=== PATIENT | female | born 1950 | race Caucasian/White ===

== ENCOUNTER 2019-03-21 14:01 | Inpatient (IN) ==
[2019-03-21] MEDS ORDERED: TORADOL IM ONE (16:29)
[2019-03-21] MEDS ORDERED: LIDODERM TOP ONE (16:29)
--- NOTE | 2019-03-21 18:42 | Diag Imaging Result Doc PS360 ---
EXAM: CT THORAX W/O CONTRAST 03/21/2019 HISTORY: multiple rib fractures s/p fal TECHNIQUE: This exam was performed using automated exposure control, adjustment of mA or kV according to patient size, and/or use of iterative reconstruction technique. COMMENT: There is no evidence of pneumothorax or pleural fluid collection. There is a partially groundglass opacity present laterally in the right upper lobe on image 42 which has a slightly greater solid component than on the previous study of 04/30/2015. This was also present on the previous study of 08/24/2014. There is also a multilobulated and partially spiculated nodule in the left upper lobe measuring 16 mm in greatest AP dimension. This was slightly less than 15 mm at the time the previous examination but was also present at the time the previous study of 2013. There are platelike opacities present in the right middle lobe similar in appearance to the previous examination. There is atelectasis versus pneumonia in the posterior costophrenic sulci bilaterally which was not the case previously. There is a hiatal hernia. There are multiple cysts in the liver. The spleen contains a granuloma but is otherwise unremarkable in appearance considering the lack of contrast. There are granulomatous calcifications in the infrahilar region of the left lower lobe. There is no evidence of significant adenopathy. There is a calcified nodule in the left lower lobe which was also present at the time the previous study. There are fractures of the right posterior lateral fifth and sixth ribs. IMPRESSION: Right fifth and sixth rib fractures. Pulmonary nodules as described. Bibasilar atelectasis. Electronically signed by Vijay Carmichael 03/21/2019 6:39 PM
--- NOTE | 2019-03-21 19:21 | PROVIDER DOCUMENTATION ---
This chart was entered by Nghia Quinteros Scribe, acting as scribe for Matilde Pollard MD. HPI-Musculoskeletal Pain/Inj - GENERAL Chief Complaint: Fall Stated Complaint: rib pain Time Seen by Provider: 03/21/19 16:25 Source: patient - HX OF PRESENT ILLNESS-MUSKULOSKELTAL Nature of Presenting Problem: 69 yof presents to ed with c/o of right rib pain secondary to tripping over her feet and falling on right side. Reports this happened this morning. States she went to Urgent care in [place] where xray was done and showed displaced ribs per patient. Pt reports that she was told to come to ed for more more imaging. Reports pain on inspiration and certain positions. Denies hitting her head or any other injuries. Hx of left pnuemothorax and lung tumors. Allergic to CT dye and omnicef. Pt reports she is on coumadin. Quality of Pain: reports: aching Severity in ED: moderate Onset/Duration: this morning Timing: still present Modifying Factors: worse with: movement Any recent injury?: Yes Similar Symptoms Previously?: Yes Recently seen or treated by another doctor?: Yes (this morning Urgent care in [place]) Review of Systems - Adult - REVIEW OF SYSTEMS - ADULT Constitutional: denies: chills, fever, fatique Eyes: reports: no symptoms reported Ears, Nose, Mouth & Throat: denies: ear pain, sinus problem, throat pain Cardiovascular: reports: no symptoms reported Respiratory: denies: cough, shortness of breath Gastrointestinal: denies: abdominal pain, nausea, vomiting Genitourinary: reports: no symptoms reported Musculoskeletal: reports: see HPI, bone pain. denies: back pain, joint pain, joint swelling, muscle aches, muscle weakness, neck pain Integumentary: reports: no symptoms reported Neurological: reports: no symptoms reported Psychiatric: reports: no symptoms reported Endocrine: reports: no symptoms reported Hematologic/Lymphatic: reports: no symptoms reported Allergic/Immunologic: reports: no symptoms reported All Other Systems: Reviewed and Negative Past History - Adult - PAST MEDICAL HISTORY-ADULT Review of Records: reports: Nursing Assessment Review, Medications Reviewed Major Childhood Illnesses: reports: denies history Cardiovascular: reports: A-Fib Respiratory: reports: other (hx of lung tumors and left pneumothorax) Gastrointestinal: reports: denies history Obstetrical/Gynecological: reports: denies history Genitourinary: reports: denies history Musculoskeletal: reports: denies history Neurological: reports: denies history Endocrine/Immune: reports: denies history Other Conditions: reports: denies history - IMMUNIZATION STATUS Childhood Immunizations: See Nurse Assessment Flu Vaccine: See Nurse Assessment - FAMILY HISTORY Family History: reviewed, not pertinent Physical Exam-Injury Related - Physical Exam-Injury Related Initial Vital Signs Reviewed: Yes General Appearance: appears well, alert, mild distress Immobilization?: negative: backboard, C-collar Eyes: PERRL/EOMI, pink conjunctivae Head, Ears, Nose, Mouth & Throat: moist mucous membranes Neck: non-tender, full range of motion, supple, normal inspection Respiratory: lungs clear, normal breath sounds, no pleuratic chest pain, no respiratory distress, no accessory muscle use, pain on inspiration. 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 as tested, grossly normal, no motor/sensory deficits Psych/Mental Status: normal mood/affect, normal thought content, normal thought process, oriented x 3 - Glascow Coma Score Best Eye Response (Largo): (4) open spontaneously Best Verbal Response (Largo): (5) oriented Best Motor Response (Largo): (6) obeys commands Largo Total: 15 Progress - PLAN OF CARE/RESULTS Progress/Plan/Lab Results: Vital Signs - 8 hr 03/21/19 14:11 03/21/19 18:08 Temperature 98 F 98.2 F Pulse Rate 72 60 Respiratory Rate 18 18 Blood Pressure 171/69 150/61 O2 Sat by Pulse Oximetry 96 95 Orders Category Date Time Status CT THORAX W/O CONTRAST [CT] Stat Exams 03/21/19 18:05 Completed PROTIME WITH INR [COAG] Stat Lab 03/21/19 19:08 Uncollected Ketorolac [Toradol] Med 03/21/19 16:29 Discontinued 30 mg IM NOW ONE Lidocaine 5% Patch [Lidoderm] Med 03/21/19 16:29 Discontinued 1 each TOP NOW ONE - REASSESSMENT Reassessment #1 Time Reassessed: 18:58 (refused medication and would like to go home. ) Status: unchanged - CONSULTS/PCP/HOSPITALIST Notification #1 *Consult/PCP/Hospitalist*: dr. Gaspar Time Discussed: 19:01 (transfer to [facility]) Consult Disposition: Admit Departure - Departure Date of Disposition Decision: 03/21/19 Time of Disposition Decision: 18:59 DIAGNOSIS: Multiple rib fractures, Pulmonary nodule Disposition: HOME 01 Certified Medical Emergency: Emergent Condition: Stable Additional Freetext Instructions: follow upwith doctor or orthopedic doctor within 1-2 days. ED Follow Up Instructions: You have been treated by a care provider in the Emergency Department. These instructions are being provided to you so you can have an understanding of how to care for yourself upon discharge. Upon discharge from the Emergency Department, you are responsible for making arrangements for follow-up care by a physician of your choice. Take all prescribed medications as directed. Return to the Emergency Department immediately for any new or worsening symptoms. You may call the Physician Referral phone number at [phone] to obtain a list of Physicians who are taking new patients. Prescriptions: Cyclobenzaprine [Flexeril] 10 mg PO TID PRN #12 tab PRN Reason: muscle spasm Lidocaine [Ztlido] 1 ea TOPICAL DAILY #5 adh..patch Referrals and Follow-Ups: Garry Hennessy [Primary Care Provider] - - Critical Care Note This patient required my direct & personal management of CC.: No Attestation - Physician/ EVELYNE Attestation Patient care was provided by Advanced Practice Provider:: No The physician spent face to face time with patient:: Yes Advanced Practice Provider documentation review:: Supervising physician onsite and consulted in the evaluation and care of this patient. The physician did have a face to face encounter with the patient. This chart was documented by the indicated scribe, (Nghia Quinteros Scribe) and accurately reflects the services I performed and decisions made by me, Matilde Pollard MD, as attested by the provider's signature.
[2019-03-21 20:15] LABS: INR 2.57; PROTIME 28.8 Seconds (11.0-16.0)
[2019-03-21] MEDS ORDERED: BETAPACE PO ONE (22:46)
[2019-03-22 02:32] LABS: BASO# 0.02 X1000 (0.0-0.2); BASO% 0.2 % (0.0-0.8); EOS# 0.11 X1000 (0.0-0.7); EOS% 1.2 % (0.0-10.0); HEMATOCRIT 43.9 % (37.0-47.0); HEMOGLOBIN 15.1 g/dL (12.0-16.0); LYMPH# 1.77 X1000 (1.2-3.4); LYMPH% 18.9 % (20.5-51.1); MCH 31.5 PG (27-31); MCHC 34.4 g/dL (33-37); MCV 91.5 FL (81-99); MONO# 1.11 X1000 (0.11-0.59); MONO% 11.9 % (1.7-9.3); MPV 11.1 FL (7.4-10.4); NEUT# 6.34 X1000 (1.4-6.5); NEUT% 67.8 % (42.2-75.2); PLT 161 X1000 (130-400); RDW 12.9 % (11.5-14.5); WBC 9.35 X1000 (4.8-10.8)
[2019-03-22 02:41] LABS: INR 2.57; PROTIME 29.5 Seconds (11.0-16.0)
[2019-03-22] MEDS ORDERED: MORPHINE IV PRN (02:48)
[2019-03-22] MEDS ORDERED: ZOFRAN IV PRN (02:48)
[2019-03-22 03:00] LABS: AGAP 6; ALB/GLOB RATIO 1.3; ALKALINE PHOSPHATASE 51 U/L (32-104); BUN 18 mg/dL (8-22); CALCIUM 9.5 mg/dL (8.8-10.2); CHLORIDE 105 mmol/L (98-107); COSMO 283; CREATININE 0.9 mg/dL (0.5-0.9); ESTIMATED GFR > 60; GLUCOSE 90 mg/dL (70-104); GOT 20 U/L (10-30); GPT 17 U/L (10-36); POTASSIUM 3.9 mmol/L (3.5-5.1); SODIUM 141 mmol/L (136-145); TCO2 30 mmol/L (25-35); TOTAL BILIRUBIN 0.51 mg/dL (0.20-1.00); TOTAL PROTEIN 7.2 g/dL (6.3-8.3)
[2019-03-22] MEDS ORDERED: MORPHINE IV ONE (03:27)
[2019-03-22] MEDS ORDERED: OFIRMEV 1000 MG/ISOTONIC SOLN 1,000 MG/100 ML BOTTLE IV ONE (04:01)
[2019-03-22] MEDS ORDERED: ATIVAN PO PRN (05:19)
--- NOTE | 2019-03-22 07:40 | EKG Report ---
Test Performed on : 03/22/2019 02:26:01 AM Test Reason : FAll with right rib fx Blood Pressure : / mmHG Vent. Rate : 062 BPM Atrial Rate : 062 BPM P-R Int : 166 ms QRS Dur : 092 ms QT Int : 454 ms P-R-T Axes : 055 048 045 degrees QTc Int : 460 ms Normal sinus rhythm. Normal ECG When compared with ECG of 01-MAY-2014 14:10, premature atrial complexes. are no longer present Confirmed by Freda ALEXIS, Foster ([id number]) on 03/22/2019 9:06:16 AM
--- NOTE | 2019-03-22 08:11 | HISTORY AND PHYSICAL ---
DATE OF CONSULTATION: 03/22/2019 REQUESTING PHYSICIAN: Physician requesting consult is Dr. Gaspar CHIEF COMPLAINT: Fall with right rib pain. PRIMARY CARE PROVIDER: Dr. Garry Hennessy. AWS CONSULTANT: Dr. Dorantes. PORT DRIER: Dr. Sanchez Quinteros. HISTORY OF PRESENT ILLNESS: Ms. Wei is a 69-year-old, female with a past medical history most notable for atrial fibrillation, on anticoagulation with Coumadin, hyperlipidemia, hypertension, glaucoma. The patient states that yesterday morning, on 03/21/2018, that she was coming out of her house. She went down the steps and stepped onto the concrete, and states that she somehow got her foot caught and tripped. This caused her to fall onto her right side. The patient denied hitting her head. She denied any loss of consciousness. The patient states that she did lay on the ground for a few minutes, though was able to get herself up. She was then and is still, at this time, complaining of right flank, right back pain. 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 She did actually get in her car and drive there yesterday morning and though did ultimately end up leaving there and going to an urgent care nearby. At the urgent care, the physician there told her that she did have rib fractures on the right side and did instruct her to come to the ER for further imaging. The patient did present to the ER at [place]. They did perform a CT of the thorax without contrast which did show right 5th and 6th rib fractures. There were pulmonary nodules noted as well. There was bibasilar atelectasis. The patient is denying any other symptoms. She is denying any chest pain, shortness of breath, or abdominal pain. She denied any pain in her extremities. The only pain that she is reporting is in her right side/flank and right back area. They did perform an INR in the ER which had a result of 2.5. They did consult Dr. Gaspar with the surgical team who did recommend the patient be admitted at [facility]. The patient was transferred to [facility] for further treatment and evaluation. REVIEW OF SYSTEMS: A 14 point review of systems was conducted with the patient. All were negative except for the pertinent positives as mentioned above in the HPI. PAST MEDICAL HISTORY: 1. History of paroxysmal atrial fibrillation, on chronic anticoagulation with Coumadin. 2. Hyperlipidemia. 3. Hypertension. 4. Glaucoma. 5. Kidney stones. 6. Diverticulitis. 7. History of this spastic torticollis. 8. History of left lung nodule, status post biopsy. PAST SURGICAL HISTORY: The patient denies any previous surgeries except for her lung biopsy and subsequent chest tube placement due to complications of a pneumothorax during her biopsy. SOCIAL HISTORY: The patient is a former smoker. She quit smoking in 1991. She denies any alcohol or illicit drug use. 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 FAMILY HISTORY: Positive for her mother having COPD, stroke, and myocardial infarction. Her father did have a myocardial infarction in his 40s, though did ultimately pass away secondary to colon cancer. ALLERGIES: The patient reports anaphylactic allergies to IV and oral contrast dye. She also did report that when she takes some Omnicef, she did have a rash, itching, and swelling of her lips and face. HOME MEDICATIONS: 1. Calcium citrate with vitamin D 600 mg p.o. b.i.d. 2. Diclofenac 75 mg tablet p.o. t.i.d. p.r.n. 3. Colace 100 mg p.o. at bedtime. 4. Latanoprost ophthalmic solution 1 drop in both eyes at bedtime. 5. Ativan 0.5 mg p.o. at bedtime. 6. Fish oil 100 mg softgel 1 p.o. b.i.d. 7. Simvastatin 20 mg p.o. at bedtime. 8. Betapace 120 mg p.o. b.i.d. 9. Timolol malleate ophthalmic solution 1 drop in both eyes q.a.m. 10. Valsartan 80 mg p.o. at bedtime. 11. Coumadin 5 mg p.o. at bedtime. 12. Ambien 5 mg p.o. at bedtime. DIAGNOSTIC DATA: Laboratory Results: White blood cell count is 9350, hemoglobin 15.1, hematocrit 43.9, platelet count is 161,000. PT 29.5, INR is 2.57. Sodium 141, potassium 3.9, chloride 105, serum bicarb is 30, BUN 18, creatinine 0.9, glucose 90, calcium 9.5. Liver function tests within normal limits. EKG showed sinus rhythm at a rate of 62 with a QTc of 460. CT of the chest without contrast showed right 5th and 6th rib fractures. There are pulmonary nodules and bibasilar atelectasis. Please see full CT of thorax for detailed findings of the size of the nodules as compared to previous CT chest study results. PHYSICAL EXAMINATION: Vital Signs: Temperature 97.9 degrees, heart rate 62, respirations 18, blood pressure is 138/49, oxygen saturation is 94-97% on room air. General: Ms. Wei is a very pleasant, 69-year-old, female. She was resting in the inpatient bed. She was in no acute distress. She was awake, alert, and able to answer questions appropriately. HEENT: Head is atraumatic, normocephalic. Pupils are equal, round, reactive to light, were 3 mm bilaterally and brisk. Oral mucosa is moist. Oropharynx is clear. Neck: Supple. Trachea midline. Cardiovascular: Patient has S1-S2 present. No murmurs, gallops, or rubs appreciated, with a regular rate and rhythm. Pulmonary: Patient has symmetrical chest expansion bilaterally. Lung sounds are clear to auscultation in bilateral full santiago. The patient does have tenderness noted upon palpation of right flank, right rib area, as well as right posterior back. Abdomen: Soft, nontender, nondistended. Bowel sounds are present in all 4 quadrants. Extremities: No cyanosis, clubbing, or edema noted. Pulse, motor, and sensory are intact in all extremities. Radial pulses and pedal pulses were 2+ bilaterally. Integumentary: The patient's skin is pink, warm, and dry except for she does have an abrasion noted to her right knee. Neurological: The patient is alert and oriented to person, place, time, and situation. She is able to move all extremities. There does not appear to be focal neurological deficits noted at this time. ASSESSMENT AND PLAN: 1. Right rib fractures. Patient's CT of thorax without contrast did show fractures of the right 5th and 6th ribs. The patient is on chronic anticoagulation with Coumadin for paroxysmal atrial fibrillation, though given her recent fall and rib fractures, we will hold her Coumadin at this time. Her INR was 2.57. Hemoglobin and hematocrit are stable. We will await Dr. Gaspar with surgical team's evaluation and further recommendations for management. We will await his recommendation on whether or not he would like her to receive her Coumadin at this time. The patient is in sinus rhythm at this time, rate controlled at 62. We will optimize her pain control. We will continue with incentive spirometry, frequent encouragement to cough, turn, and deep breathe. We will continue to follow closely. 2. Fall from a standing position. The patient states that she was walking and her foot got caught and she tripped. She denied any dizziness, chest pain, shortness of breath, near- syncope, or syncopal episode prior to her fall. 3. Paroxysmal atrial fibrillation. We will continue the patient's Betapace. According to the electrocardiogram and cardiac cath lab manager, she is in sinus rhythm at this time which is rate controlled in the 60s. As previously mentioned in #1, we are holding her Coumadin at this time until she is evaluated by the surgical team. Her last INR was 2.57. We have ordered a repeat for this tomorrow morning. 4. Hypertension. We will continue her regularly prescribed medicines. 5. History of pulmonary nodules. The patient states that her sole scraper has been following and monitoring these nodules for quite some time. She does see Dr. Sanchez Quinteros in [place]. Please see him full CT report for detailed findings and description of the patient's pulmonary nodules. 6. Deep vein thrombosis prophylaxis will be provided with sequential compression devices. 7. The patient has been placed on the surgical floor with telemetry. She will have vital signs every 4 hours. She will be on continuous cardiac telemetry. She will be on a heart healthy diet. We will repeat a CBC, BMP, and CMP tomorrow. Further orders and recommendations pending hospital course, diagnostic studies, and physician evaluation. Dictated by BOOKER Brito for Kaiser Morales MD cc: Kaiser Morales MD
[2019-03-22] MEDS ORDERED: TIMOLOL MALEATE BOTH EYES SCH (09:00)
[2019-03-22] MEDS: BETAPACE PO SCH ×2 (09:04→22:26)
[2019-03-22] MEDS: CITRACAL + D PO SCH ×2 (09:04→22:27)
[2019-03-22] MEDS: FISH OIL CONCENTRATE PO SCH ×2 (09:05→22:28)
--- NOTE | 2019-03-22 09:49 | GENERAL SURGERY CONSULTATION ---
DATE: 03/22/2019 HISTORY OF PRESENT ILLNESS: This is a 69-year-old female who is anticoagulated for atrial fibrillation. She was walking around her deck at her home and fell from standing on her right side. No loss of consciousness. She has developed pain. She came the ER where CT scan was obtained that showed rib fractures. She also had an x-ray at an urgent care that confirmed this as well. She was admitted to the hospitalist service for pulmonary toileting and I have been consulted for management. Her CT scan in the emergency department showed no pneumothorax, no effusion. REVIEW OF SYSTEMS: Ten point negative. MEDICAL HISTORY: Atrial fibrillation on Coumadin, hyperlipidemia, hypertension, glaucoma, nephrolithiasis, diverticulitis, spastic torticollis, history of left lung nodule benign. SURGICAL HISTORY: She has had a left lung biopsy with subsequent chest tube for pneumothorax, but no right hemithorax surgery. SOCIAL HISTORY: She did quit smoking in the early 90s. No alcohol. 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 FAMILY HISTORY: Reviewed. MEDICATIONS: Significant for Coumadin. PHYSICAL EXAMINATION: Vital Signs: Temperature 97.6 degrees, pulse 53, blood pressure 166/52, oxygen 97%. General: She is alert, in no acute distress. HEENT: No scleral icterus. No cervical mass. Cardiovascular: Normal rate. Pulmonary: Equal chest rise. There is no crepitus or deformity of the right chest and no obvious bruising. Abdomen: Soft. Integument: Warm, dry. Psychiatric: Appropriate affect. Neurologic: No gross deficits. Peripheral Vascular: Does have some lower extremity edema. She has an abrasion to the right anterior patella, but no deformity. No significant tenderness or decreased range of motion. Lymphatic no cervical adenopathy. LABS: I reviewed her labs. White count is 9, hematocrit 43. INR is 2.57. Creatinine is normal. LFTs are normal. IMAGING: I reviewed her CT scan of her chest with above findings. ASSESSMENT AND PLAN: A 69-year-old female with rib fractures of right chest after a fall. No loss of consciousness. There is no effusion. There is no pneumothorax. Will repeat a PA and lateral chest x-ray this morning. If she is able to ambulate, it will be reasonable let her go home. I would like to see her in a week with follow-up chest x-ray. Otherwise, we will defer management to the medicine service. cc: Loli Gaspar MD
[2019-03-22] MEDS ORDERED: BLISTEX MEDICATED BERRY LIP BALM TOP ONE (09:53)
[2019-03-22] MEDS ORDERED: TYLENOL PO PRN (10:00)
[2019-03-22] MEDS: TIMOPTIC 0.25% OPH SOLUTION BOTH EYES SCH (10:16)
--- NOTE | 2019-03-22 10:32 | Diag Imaging Result Doc PS360 ---
EXAM: CHEST-2 VIEWS 03/22/2019 HISTORY: rib fx TECHNIQUE: PA and lateral chest COMMENT: There is no evidence of pneumothorax. There is some blunting of both costophrenic angles. There is apparent fracture of the fifth, sixth, and possibly the fourth rib on the right laterally. There is subsegmental atelectasis in both lung bases. The heart size and pulmonary vascularity are within normal limits. There is an ill-defined opacity laterally in the left upper lobe which has not changed since 05/01/2014. IMPRESSION: Multiple right rib fractures. The possibility of a small amount of pleural fluid or hemothorax on the right cannot be excluded. Atelectasis versus effusion on the left. Electronically signed by Vijay Carmichael 03/22/2019 10:29 AM
[2019-03-22] MEDS: MORPHINE IV PRN ×2 (11:22→22:25)
--- NOTE | 2019-03-22 14:06 | PROGRESS NOTE ---
DATE: 03/22/2019 This 69-year-old who was anticoagulant for atrial fibrillation walking around on her deck and fell from standing on her right side. No loss of consciousness and presentation to the emergency room x-ray showed multiple rib fractures on the right side. No sign of pneumothorax. So here really for observation. Past medical history as above. She says she is breathing comfortably. Just the main pain is right underneath her axillary and to right upper back. Afebrile, temperature 98.4 degrees, pulse 58, respirations 12, blood pressure 135/55. Pupils are equal and round. Lungs are clear in all lung santiago. Cardiovascular exam regular rhythm and rate without murmur or S3. Abdomen is soft. Skin is warm and dry. LAB: White count 9350, hematocrit 43, platelet count 161,000. Sodium 141, potassium 3.9, chloride 105, BUN 18, creatinine 0.9, AST 20, ALT was 17, alkaline phosphatase 51. Pro time was 28 and INR 2.5. REVIEW OF CURRENT MEDICATIONS: She is on Citracal plus D 1 b.i.d., Colace 100 mg at bedtime, latanoprost which is Xalatan eye drops both eyes at bedtime, Ativan 0.5 mg at bedtime p.r.n., omega-3, omega 6, omega 9 fatty acids 1000 mg b.i.d., Zocor 20 mg at bedtime, Betapace 120 mg b.i.d., Diovan 80 mg at bedtime, Ambien 5 mg at bedtime and of course holding her Coumadin. Seems to be breathing comfortably. 1. Atrial fibrillation and held her Coumadin. 2. Blood pressure appears well controlled. 3. History of pulmonary nodules, can cutter been following, Dr. Sanchez Quinteros at [place]. Continue sequential compression stockings. CT of the thorax with contrast did show fractures of the right 5th and 6th ribs and she has been on chronic coagulation for paroxysmal atrial fibrillation. Given recent fall will let her INR drop a little bit so holding Coumadin. cc: Richar Finley MD
[2019-03-22] MEDS ORDERED: AMBIEN PO SCH (21:00)
[2019-03-22] MEDS ORDERED: ATIVAN PO SCH (21:00)
[2019-03-22] MEDS: DIOVAN PO SCH (22:22)
[2019-03-22] MEDS: XALATAN 0.005% OPH SOLN BOTH EYES SCH (22:26)
[2019-03-22] MEDS: AMBIEN PO SCH (22:27)
[2019-03-22] MEDS: ZOCOR PO SCH (22:28)
[2019-03-22] MEDS: COLACE PO SCH (22:28)
[2019-03-22] MEDS: MILK OF MAGNESIA PO SCH (22:51)
[2019-03-23 06:14] LABS: BASO# 0.02 X1000 (0.0-0.2); BASO% 0.2 % (0.0-0.8); EOS# 0.22 X1000 (0.0-0.7); EOS% 2.6 % (0.0-10.0); HEMATOCRIT 41.3 % (37.0-47.0); HEMOGLOBIN 14.3 g/dL (12.0-16.0); LYMPH# 1.43 X1000 (1.2-3.4); LYMPH% 16.9 % (20.5-51.1); MCHC 34.6 g/dL (33-37); MCV 92.4 FL (81-99); MONO# 0.91 X1000 (0.11-0.59); MONO% 10.8 % (1.7-9.3); MPV 11.2 FL (7.4-10.4); NEUT# 5.88 X1000 (1.4-6.5); NEUT% 69.5 % (42.2-75.2); PLT 137 X1000 (130-400); RBC 4.47 XMIL (4.2-5.4); WBC 8.46 X1000 (4.8-10.8)
[2019-03-23 06:36] LABS: AGAP 10; BUN 16 mg/dL (8-22); CALCIUM 8.9 mg/dL (8.8-10.2); CHLORIDE 103 mmol/L (98-107); COSMO 281; CREATININE 0.7 mg/dL (0.5-0.9); ESTIMATED GFR > 60; GLUCOSE 107 mg/dL (70-104); POTASSIUM 4.1 mmol/L (3.5-5.1); SODIUM 140 mmol/L (136-145); TCO2 27 mmol/L (25-35)
[2019-03-23 06:43] LABS: INR 1.59; PROTIME 20.2 Seconds (11.0-16.0)
[2019-03-23] MEDS: CITRACAL + D PO SCH ×2 (08:47→20:08)
[2019-03-23] MEDS: BETAPACE PO SCH ×2 (08:47→20:07)
[2019-03-23] MEDS: FISH OIL CONCENTRATE PO SCH ×2 (08:48→20:08)
[2019-03-23] MEDS: TIMOPTIC 0.25% OPH SOLUTION BOTH EYES SCH (08:48)
[2019-03-23] MEDS: MORPHINE IV PRN ×2 (10:35→20:20)
[2019-03-23] MEDS: MIRALAX PO SCH ×2 (10:35→20:07)
--- NOTE | 2019-03-23 16:25 | PROGRESS NOTE ---
DATE: 03/23/2019 SUBJECTIVE: She is in a lot of pain on her right side where she broke several ribs. Otherwise, she is breathing comfortably. Remains afebrile. Pain is most severe obviously when she is trying to move or get up out of bed. She wants to explore the possibility of going to rehab. She lives by herself. So, we will see how she does with physical therapy. OBJECTIVE: Vital signs: Temp 97.5 degrees, pulse 67, respirations 15, blood pressure 136/50. HEENT: Pupils are equal. Neck: No distended neck veins. Lungs: Clear anterolateral. Cardiovascular: Regular rhythm and rate without murmur or S3. Abdomen: Soft. Skin: Warm and dry. ASSESSMENT AND PLAN: 1. Several fractured ribs on the right side, in a lot of pain. No sign of pneumothorax or respiratory compromise, but she will be in a lot of pain for several weeks. I will explore the possibility of rehab. 2. Atrial fibrillation. On Coumadin. 3. Blood pressure is well controlled. 4. Have noted that she has been followed for pulmonary nodules by her apparatus repair mechanic, Dr. Sanchez Quinteros, and I do not see a lot of change in that at this point. She had fractured ribs after a fall. There was no loss of consciousness. No sign of effusion or pneumothorax. So, we will try and make a discharge plan on Thursday, depending on how she is doing. REVIEW OF ORDERS: She is on Zocor 20 mg a day, Diovan 80 mg at bedtime, calcium citrate 1 b.i.d., Ativan 0.5 mg at bedtime p.r.n., omega-3 fatty acids 1000 mg b.i.d., MiraLAX 17 g b.i.d., timolol 0.25% ophthalmic drops both eyes q.a.m., and Colace 100 mg at bedtime. cc: Richar Finley MD
--- NOTE | 2019-03-23 18:08 | GENERAL SURGERY PROGRESS NOTE ---
DATE: 03/23/2019 SUBJECTIVE: She is having some pain, she says, but she remains on room air. OBJECTIVE: No crepitance, no deformity of her right chest. She is sitting on the edge of the bed. I reviewed her vital signs. ASSESSMENT AND PLAN: This is a 69-year-old female with right-sided rib fractures. We will continue to follow her closely. Pain control, pulmonary toileting. We will repeat her x-ray in the morning. She is requesting someone to help her go to the bathroom, and I talked to the nurse about this. cc: Loli Gaspar MD
[2019-03-23] MEDS: COLACE PO SCH (20:07)
[2019-03-23] MEDS: ZOCOR PO SCH (20:08)
[2019-03-23] MEDS: MILK OF MAGNESIA PO SCH (20:08)
[2019-03-23] MEDS: AMBIEN PO SCH (20:08)
[2019-03-23] MEDS: DIOVAN PO SCH (20:08)
[2019-03-23] MEDS: XALATAN 0.005% OPH SOLN BOTH EYES SCH (20:09)
[2019-03-24] MEDS: FISH OIL CONCENTRATE PO SCH ×2 (08:14→21:49)
[2019-03-24] MEDS: BETAPACE PO SCH ×2 (08:15→21:50)
[2019-03-24] MEDS: MIRALAX PO SCH ×2 (08:16→21:52)
[2019-03-24] MEDS: TIMOPTIC 0.25% OPH SOLUTION BOTH EYES SCH (08:16)
[2019-03-24] MEDS: MORPHINE IV PRN ×2 (08:21→21:50)
[2019-03-24] MEDS: CITRACAL + D PO SCH ×2 (08:30→21:51)
--- NOTE | 2019-03-24 09:15 | Diag Imaging Result Doc PS360 ---
CHEST-2 VIEWS - 03/24/2019 INDICATION: rib fracture COMPARISON: 03/22/2019 FINDINGS: The lungs are clear. Heart size is normal. No pneumothorax or pleural effusion. IMPRESSION: No change from prior. Electronically signed by Julián Burt 03/24/2019 9:12 AM
--- NOTE | 2019-03-24 16:48 | PROGRESS NOTE ---
DATE: 03/24/2019 SUBJECTIVE: Ms. Wei is sitting up in a chair. She does feel a little better today. She wanted know if maybe a girdle or Allan bandage would help around her ribs as far as comfort level. She is eating. Her bowels are moving. They are looking around to see about a rehab position. OBJECTIVE: Vital signs: Temperature 97.7 degrees, pulse 72, respirations 22, blood pressure 139/39. HEENT: Pupils are equal and round. Lungs: Clear in all lung santiago. Cardiovascular: Regular rhythm and rate without murmur or S3. Abdomen: Soft. Skin: Warm and dry. Urine output is 420 mL. IMAGING: Chest x-ray: No change from prior. Lungs are clear. Heart size normal. No pneumothorax or pleural effusion. ASSESSMENT AND PLAN: 1. Several fractured ribs on the right side, good deal of pain. No pneumothorax or respiratory compromise, but just a lot of pain. 2. Atrial fibrillation. Continue Coumadin. Her anticoagulant, ProTime is 20, INR is 1.59. 3. Blood pressure is well controlled. 4. She had been followed by varying exceptionalities teacher, Dr. Sanchez Quinteros for pulmonary nodules. This has really not changed. 5. Looking for rehab position. REVIEW OF ORDERS: I do not see any change. We have held her Coumadin. She was taking 5 mg at bedtime and I may put her back on 4 mg of Coumadin. Follow her ProTime. Maybe let it stay a little closer to 1.7 for a while until her ribs heal up. cc: Richar Finley MD
--- NOTE | 2019-03-24 18:58 | GENERAL SURGERY PROGRESS NOTE ---
DATE: 03/24/2019 SUBJECTIVE: She continues to have some pain. No fevers. No tachycardia. She is on room air, saturating 95%. OBJECTIVE: She is alert. There is equal chest rise. No acute distress, but she does appear uncomfortable. I reviewed her x-ray from this morning. It is stable with no pneumothorax and no effusion. ASSESSMENT AND PLAN: A 68-year-old female with rib fractures on the right. Pain control is her main issue and pulmonary toileting. We will continue both of these, but no plans for surgical intervention. cc: Loli Gaspar MD
[2019-03-24] MEDS ORDERED: COUMADIN PO SCH (21:00)
[2019-03-24] MEDS: ZOCOR PO SCH (21:49)
[2019-03-24] MEDS: AMBIEN PO SCH (21:49)
[2019-03-24] MEDS: DIOVAN PO SCH (21:49)
[2019-03-24] MEDS: XALATAN 0.005% OPH SOLN BOTH EYES SCH (21:49)
[2019-03-24] MEDS: COLACE PO SCH (21:49)
[2019-03-24] MEDS: MILK OF MAGNESIA PO SCH (21:52)
[2019-03-25] MEDS: MORPHINE IV PRN (09:00)
[2019-03-25] MEDS ORDERED: NORCO-7.5 PO PRN (10:16)
[2019-03-25] MEDS ORDERED: LIDODERM TOP SCH (10:30)
[2019-03-25] MEDS: ROBAXIN 1,000 MG in NS 50 ML IV SCH ×2 (11:15→19:13)
[2019-03-25] MEDS: MIRALAX PO SCH (11:24)
[2019-03-25] MEDS: CITRACAL + D PO SCH (11:26)
[2019-03-25] MEDS: FISH OIL CONCENTRATE PO SCH (11:27)
[2019-03-25] MEDS: BETAPACE PO SCH (11:27)
[2019-03-25] MEDS: TIMOPTIC 0.25% OPH SOLUTION BOTH EYES SCH (11:28)
--- NOTE | 2019-03-25 12:57 | GENERAL SURGERY PROGRESS NOTE ---
DATE: 03/25/2019 SUBJECTIVE: Continues to have pain that is worsening in the right chest. No fevers. No tachycardia. Oxygen saturation is in the low 90s. I reviewed her labs and her chest x-ray since she has been here. ASSESSMENT AND PLAN: A 69-year-old female with rib fracture. She needs better pain control. We will start her on [place], lidocaine patch and Robaxin. I have encouraged her to be out of bed ambulating, aggressive pulmonary toileting. Follow along. cc: Loli Gaspar MD
--- NOTE | 2019-03-25 14:27 | DISCHARGE SUMMARY ---
ADMISSION DATE: 03/21/2019 DISCHARGE DATE: 03/25/2019 HISTORY AND HOSPITAL COURSE: This is a 69-year-old patient of Dr. Garry Hennessy. The patient was admitted. A 69-year-old female, past medical history most notable for atrial fibrillation, anticoagulation with Coumadin, hyperlipidemia, hypertension, glaucoma. The morning before admission, she was coming out of her house. She went down the steps and stepped onto the concrete and states that somehow her foot caught and tripped, causing her fall. Hit her right side. The patient denied hitting her head. Denied any loss of consciousness. Complaining of right flank pain, right back pain. 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 Urgent Care told her that she had fractures on her right side and did instruct to come to the emergency room for further imaging. Presented to the emergency room at [facility], performed a CT of the thorax and showed 5th and 6th rib fracture. There are pulmonary nodules noted as well. There is bibasilar atelectasis. The patient did not develop any pneumothorax or hemothorax, but very painful and wanted to go to rehab so we will plan to send to rehab today. PAST MEDICAL HISTORY: 1. History of paroxysmal atrial fibrillation on chronic anticoagulation with Coumadin. 2. Hyperlipidemia. 3. Hypertension. 4. Glaucoma. 5. Kidney stones. 6. Diverticulitis. 7. History of spastic torticollis. 8. History of lung nodule status post biopsy in the past. Aware of these nodules. So the patient seemed to get a little more comfortable and review of all of her films really discovered rib fractures. PHYSICAL EXAMINATION: Vital signs: Temperature 100.4 degrees, pulse 69, respirations 20, blood pressure 121/45. HEENT: Pupils are equal. Lungs: Clear in all lung santiago. Cardiovascular: Regular rhythm and rate without murmur or S3. Abdomen: Soft. Skin: Warm and dry. DISCHARGE DISPOSITION: We will discharge to rehab. DISCHARGE MEDICATIONS: 1. Calcium citrate plus D twice a day. 2. Colace 100 mg at bedtime. 3. [place] 7.5 mg q.4 hours p.r.n. 4. Xalatan eye drops 0.005% both eyes. 5. Lidoderm patch daily. 6. Ativan 0.5 mg at bedtime p.r.n. 7. Magnesium hydroxide 30 mL p.o. at bedtime. 8. Fish oil concentrate 1000 mg b.i.d. 9. MiraLAX 17 g b.i.d. 10. Zocor 20 mg a day. 11. Betapace 120 mg b.i.d. 12. Diovan 80 mg at bedtime. 13. We put her back on Coumadin 4 mg daily. We had held it for a while. Her protime was 20.2 yesterday, so we will have them check a protime every 3rd day and follow up with her primary care physician. cc: Richar Finley MD MTDD
[2019-03-25 17:21] VITALS: BP 145/54
== END 2019-03-25 19:58 | DRG 184 ==
LOC: P.ED 14:01 → SUATTDRO 14:02 → 4N 22:22
PROVIDERS: ATTEND Emergency Medicine
CPT/HCPCS: 71020; 71046; 71250; 80048; 80053; 85025; 85610; 86850; 86900; 86901; 93005; 93010; 94761; 94799; 97110; 97116; 97162; 97166; 97530; 97535; 99285; A9270; J0131; J2270; J2800